=== PATIENT | female | born 1995 | race Caucasian/White ===

== ENCOUNTER 2020-09-29 15:13 | Outpatient (CLI) | payer OTHER | END 2020-09-29 17:00 | disposition home or self-care (01) | LOC: GENOP 15:13 | PROVIDERS: Obstetrics & Gynecology | DX: O36.8130 Decreased fetal movements, third trimester, not applicable or unspecified (principal); O99.891 Other specified diseases and conditions complicating pregnancy; R10.11 Right upper quadrant pain; Z88.1 Allergy status to other antibiotic agents; Z79.899 Other long term (current) drug therapy; Z3A.32 32 weeks gestation of pregnancy | CPT/HCPCS: 59025; 80307; 81001; 82731; 83518 ==